=== PATIENT | female | born 1995 | race Asian ===

== ENCOUNTER 2017-11-03 09:50 | Emergency (ER) | payer OTHER ==
[2017-11-03 10:18] VITALS: BP 117/78; PULSE 78; RESP 16; TEMP 98.8; O2SAT 98
--- NOTE | 2017-11-03 11:36 | EDPHY ---
H & P Smoking Status: Never smoked Time Seen by Provider: 11/03/17 10:51 HPI/ROS: CHIEF COMPLAINT: Finger laceration HISTORY OF PRESENT ILLNESS: 22-year-old female presents to the emergency department by private vehicle with a laceration to her left 3rd finger. The patient states yesterday afternoon she accidentally cut her finger while prepping food with a knife. She states that she was able to control the bleeding until this morning it started bleeding again. She now presents to the emergency department nearly 24 hr after the original injury. She believes her tetanus shot is current. She is right-hand dominant. ROS: Denies numbness or tingling in her fingers, retained foreign body. (Adriane Jean-Baptiste) Past Medical/Surgical History: Negative (Adriane Jean-Baptiste) Social History: Single (Adriane Jean-Baptiste) Physical Exam: On examination the patient has a small less than 1 cm flap laceration to the dorsal aspect of her left 3rd finger overlying PIP joint. The injury does not extend into her nail. No palpable bony tenderness. Full range of motion of the left 3rd finger. The other fingers do not appear injured. Normal sensation to light touch with normal 2 point discrimination. No active bleeding noted currently. (Adriane Jean-Baptiste) Constitutional: Initial Vital Signs Temperature (C) 37.1 C 11/03/17 10:15 Heart Rate 78 11/03/17 10:15 Respiratory Rate 16 11/03/17 10:15 Blood Pressure 117/78 11/03/17 10:15 O2 Sat (%) 98 11/03/17 10:15 O2 Delivery Mode Room Air Allergies/Adverse Reactions: No Known Allergies Allergy (Unverified 11/03/17 10:15) Home Medications: Medication Instructions Recorded NK [No Known Home Meds] 11/03/17 MDM/Departure - MDM ED Course/Re-evaluation: 22-year-old female presents to the emergency department with laceration to her left 3rd finger. I explained to the patient that given the length of time, nearly 24 hr, that she presents to the emergency department, I do not think sutures are indicated. Patient verbalized understanding and agreed. The wound was thoroughly cleansed and dressed. Patient was given wound care precautions. I do not think the patient requires delayed primary closure. The wound is very superficial and I think will heal on its own. (Adriane Jean-Baptiste) The patient was evaluated and managed by the Physician [place] Applier. I discussed the patient's presentation and course with the physician inside sales assistant and agree with the evaluation. My co-signature indicates that I have reviewed this chart and I agree with the findings and plan of care as documented. I am the secondary supervising physician. (Anita Mayfield) - Depart Disposition: Home, Routine, Self-Care Clinical Impression: Laceration of left middle finger Qualifiers: Encounter type: initial encounter Damage to nail status: without damage Foreign body presence: without foreign body Qualified Code(s): S61.213A - Laceration without foreign body of left middle finger without damage to nail, initial encounter Condition: Good Instructions: Laceration (ED), Acute Wounds (ED) Additional Instructions: Return if you develop any signs of infection such as redness, swelling, increasing pain, or if you feel worse in any way. Referrals: Kerri Amanda MD [Medical Doctor] - As per Instructions
== END 2017-11-03 11:40 | disposition home or self-care (01) ==
DX: S61.213A Laceration without foreign body of left middle finger without damage to nail, initial encounter (principal); W26.0XXA Contact with knife, initial encounter; Y99.8 Other external cause status; Y93.G1 Activity, food preparation and clean up